=== PATIENT | female | born 2000 | race African-American/Black ===

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

== ENCOUNTER → 2024-02-15 | Outpatient (CLI) | payer MEDICAID, SELFPAY ==
[2024-02-15 13:54] LABS: HIV - WCH Non-Reactive (Nonreactive); Syphilis Antibodies Non-reactive
[2024-02-16 09:09] LABS: HEPATITIS B SURFACE AG Negative (Negative); Hep B Surface Antibodies Non Reactive (.); Hepatitis B Core Ab Total Negative (Negative); Hepatitis C Ab Non Reactive (Non Reactive)
== END | disposition home or self-care (01) ==
LOC: VSLAB 12:10
PROVIDERS: PCP Nurse Practitioner Family; Visit Provider Nurse Practitioner Family
DX: Z11.3 Encounter for screening for infections with a predominantly sexual mode of transmission (principal)
CPT/HCPCS: 36415; 86703; 86704; 86705; 86706; 86707; 86780; 86803; 87340; 87350

== ENCOUNTER 2025-03-11 14:45 | Emergency (ER) | payer MEDICAID, SELFPAY ==
[2025-03-11 14:47] VITALS: BP 145/107; PULSE 126; RESP 16; TEMP 36; O2SAT 98; BMI 24.3
--- NOTE | 2025-03-11 15:18 | EX.ED.DYSGE1 ---
HPI History of Present Illness Chief Complaint: Abscess Informant: patient Onset/Context/Timing Onset: Yesterday Context: Gradual Onset Timing: Continuous Quality: Aching Location: Left labia Worsened by: Sitting, walking Relieved by: Nothing Narrative Narrative: Patient presents with left labial abscess that began yesterday. Patient states today it started draining. Patient states she noted a foul odor from this. Patient states her pain is aching. Patient states it is constant. Patient states it is mainly over the left labia. Patient states it is worse with sitting and with walking. Patient states nothing makes it better. Patient denies any fevers or chills. Patient denies any dysuria or frequency. Patient is also concerned about possible sexually transmitted infection and bacterial vaginosis. [facility] Medical History Back pain Difficulty balancing Asthma Headache Anemia Home Medications ?Medication ?Instructions ?Recorded ?Last Taken ?Type montelukast 10 mg tablet 10 mg PO DAILY 05/29/20 Unknown History doxycycline monohydrate 100 mg 100 mg PO BID #20 CAPSULES 03/11/25 Unknown Rx capsule Allergy/AdvReac Type Severity Reaction Status Date / Time cat dander Allergy Other Verified 03/11/25 14:46 dog dander Allergy Other Verified 03/11/25 14:46 grass pollen Allergy Other Verified 03/11/25 14:46 Family History (Updated 04/01/18 @ 12:47 by Tari Lozada) Other Amyloidosis Diabetes Hypertension Social History Smoking Status: Never smoker alcohol intake: never ROS ROS ED Constitutional Constitutional ED: Denies chills or fever(s) Eyes Eyes: Denies blurry vision or change in vision ENT ENT ED: Denies rhinorrhea or sore throat Cardiovascular Cardiovascular: Reports palpitations; Denies chest pain Respiratory/Chest Respiratory/Chest: Denies cough or dyspnea Gastrointestinal Gastrointestinal: Denies nausea or vomiting Genitourinary Genitourinary ED: Reports hematuria; Denies dysuria Musculoskeletal Musculoskeletal: Denies back pain or neck pain Integumentary Denies abscess or rash Neurologic Neurologic: Denies headache(s) or weakness Allergic/Immunologic Allergic/Immunologic ED: Denies mouth swelling or urticaria EXAM Physical Exam Const Vital Signs: 03/11/25 14:47 Temperature 96.8 F L Temperature Source Temporal Pulse Rate 126 H Respiratory Rate 16 Blood Pressure 145/107 H Blood Pressure Mean 119 Pulse Ox 98 Oxygen Delivery Method Room Air Positive well nourished and well developed General Appearance ED: well developed and NAD HEENT Reports moist mucous membranes Neck supple and no JVD Resp normal respiratory effort and clear to auscultation bilaterally Cardio regular rate and regular rhythm GI non-tender and non-distended Palpation: soft Neuro oriented x3, CN's II-XII intact bilaterally and no sensory deficits noted Sensorium / Orientation: alert Motor Exam: strength 5/5 throughout Psych mental status grossly normal MDM MDM MDM Narrative Medical decision making narrative: Differential diagnosis includes Bartholin abscess, sexually-transmitted disease, bacterial vaginosis, urinary tract infection, and . Urinalysis will be obtained to assess for urinary tract infection and hematuria. GC and Chlamydia PCR will be obtained to assess for sexually transmitted infection. Trichomonas PCR will be obtained to assess for trichomoniasis. Lab Data Attestation: I reviewed the patient's lab results. Lab results narrative: Urine hCG was reviewed and was negative. Urinalysis was reviewed. Leukocyte esterase was 500 with 25-50 white blood cells and 3+ bacteria. Labs: Laboratory Results - last 24 hr 03/11/25 15:30 Urine Color Yellow Urine Clarity Cloudy Urine pH 8.0 Ur Specific [place] 1.015 Urine Protein 100 H Urine Glucose (UA) Normal Urine Ketones 5 H Urine Occult Blood 25 H Urine Nitrite Negative Urine Bilirubin 1 H Urine Urobilinogen 4 H Ur Leukocyte Esterase 500 H Urine RBC 0-5 SEEN Urine WBC 25-50 SEEN Ur Squamous Epith Cells 0 SEEN Urine Bacteria 3+ Urine Mucus 4+ Urine Test Negative Additional Tests and Interventions Additional Tests or Interventions: Urine culture was ordered. Treatment and Re-Evaluation :: Patient was given a dose of Rocephin. Patient was given a dose of doxycycline and metronidazole. The area was cleaned with chlorhexidine prep. The area was anesthetized with 1% plain lidocaine locally. A small linear incision was made using an 11 blade scalpel. A large amount of purulent drainage was expressed. The wound was left open. Dressing was applied. Patient tolerated the procedure well. Patient was instructed to use warm sits baths. Patient was given a prescription for doxycycline. Patient was instructed to follow-up with her primary care physician in 5 to 7 days. Patient understood and was agreeable with the plan. All questions were answered. Procedures Other Procedures Procedure(s): The area was cleaned with chlorhexidine prep. The area was anesthetized with 1% plain lidocaine locally. A small linear incision was made using an 11 blade scalpel. A large amount of purulent drainage was expressed. The wound was left open. Bacitracin dressing was applied. Patient tolerated the procedure well. Discharge Plan Triage Chief Complaint: Abscess ED Provider: Mian Cheng Dx/Rx/DC Orders Clinical Impression: Abscess of left genital labia, Elevated blood pressure reading, Urinary tract infection Instructions: ED Abscess Incision And Drainage, ED Cystitis Female Adult Prescriptions: New doxycycline monohydrate 100 mg capsule 100 mg PO BID Qty: 20 0RF No Action montelukast 10 MG tablet 10 mg PO DAILY Primary Care Provider: Paola Mercer Referrals: Columba Madsen Smith, RECRUITING SCHEDULER-C [[facility], [facility]] - 5-7 Days Print Language: Qatari Disposition Disposition: Home, Self Care
[2025-03-11 15:42] LABS: Squamous Epithelial Cells - UA 0 SEEN /hpf (5-10)
[2025-03-11] MEDS: Lidocaine 1% (20 ml mdv) 20 ML Vial INFILT (15:42)
[2025-03-11 16:15] LABS: Color, Urine Yellow (Yellow); Glucose, Dipstick Normal (Normal); Ketone-Dipstick 5 mg/dl (Negative); Leukocyte Esterase-Dipstick 500 /ul (Negative); Nitrite-Dipstick Negative (Negative); Occult Blood-Urine 25 /ul (Negative); Protein-Dipstick 100 mg/dl (Negative); Specific Gravity, Urine 1.015 (1.002-1.030)
[2025-03-11 16:20] LABS: Urine Bilirubin Dipstick 1 mg/dL (Negative)
[2025-03-11 16:32] LABS: Mucous, Urine 4+ /hpf (<or=2+); Red Blood Cells-Urine 0-5 SEEN /hpf (0-5)
[2025-03-11 16:33] LABS: Internal QC Validated? YES +Cl - CLEAR BKGD; Pregnancy, Urine Negative Negative; Record Kit Lot#,Urine Preg 0000980607
[2025-03-11 16:45] VITALS: BP 140/109; PULSE 118; O2SAT 98
--- NOTE | 2025-03-11 17:22 | ED.RN ---
LAB CALLED PT POSITIVE CHLAMYDIA
[2025-03-11 17:30] VITALS: BP 140/100; PULSE 82; RESP 16; TEMP 36.6; O2SAT 99
== END 2025-03-11 17:36 | disposition home or self-care (01) ==
PROVIDERS: Emergency Provider Emergency Medicine; PCP Nurse Practitioner Family; Visit Provider Emergency Medicine
DX: N76.4 Abscess of vulva (principal); R03.0 Elevated blood-pressure reading, without diagnosis of hypertension; N39.0 Urinary tract infection, site not specified; Z20.2 Contact with and (suspected) exposure to infections with a predominantly sexual mode of transmission
CPT/HCPCS: 10060; 36415; 80074; 81001; 81025; 86703; 86780; 87086; 87088; 87491; 87591; 87661; 96365; 99283; A4216

== ENCOUNTER → 2025-03-11 | Outpatient (CLI) | payer MEDICAID, SELFPAY ==
[2025-03-11 18:19] LABS: HIV Nonreactive (Nonreactive); Syphilis Antibodies Nonreactive (Nonreactive)
[2025-03-13 03:07] LABS: HEPATITIS B SURFACE AG Negative (Negative); Hep C Antibodies Non Reactive (Non Reactive)
== END | disposition home or self-care (01) ==
LOC: VSLAB 14:18
PROVIDERS: PCP Nurse Practitioner Family; Referring Provider Nurse Practitioner Family; Visit Provider Nurse Practitioner Family
DX: Z11.3 Encounter for screening for infections with a predominantly sexual mode of transmission (principal)
CPT/HCPCS: 36415; 80074; 86703; 86780

== ENCOUNTER → 2025-04-22 | Outpatient (CLI) | payer MEDICAID, SELFPAY ==
[2025-04-22 12:08] LABS: Internal QC Validated? YES +Cl - CLEAR BKGD; Pregnancy, Serum, hCG Quali. NEGATIVE Negative
[2025-04-22 12:45] LABS: Follicle Stimulating Hormone 4.0 mIU/mL
[2025-04-25 14:09] LABS: Testosterone, % Free 2.05 % (0.50-2.80); Testosterone, Free 1.07 ng/dL (0.10-0.85)
== END | disposition home or self-care (01) ==
PROVIDERS: PCP Nurse Practitioner Family; Referring Provider Nurse Practitioner Family; Visit Provider Nurse Practitioner Family
DX: N92.6 Irregular menstruation, unspecified (principal); Z13.1 Encounter for screening for diabetes mellitus
CPT/HCPCS: 83036; 36415; 82670; 83001; 83002; 84402; 84403; 84703